=== PATIENT | female | born 1950 | race Caucasian/White ===

== ENCOUNTER 2022-09-23 23:15 | Emergency (ER) | payer OTHER, SELFPAY ==
--- NOTE | ~2022-09-23 | XR_ITS ---
Left elbow Technique: AP, oblique, and lateral views were obtained. Clinical History: Pain Findings: No acute fracture or dislocation is seen. Osseous alignment is anatomic. Joint spaces are p reserved. There is no displacement of the fat pads, and soft tissues are unremarkable. Impression: Unremarkable radiographs. Reviewed, dictated and finalized at location . Impression: Unremarkable radiographs.
--- NOTE | 2022-09-24 02:06 | ED.UPPEXIN ---
HPI - Extremity Injury (Upper) General Chief Complaint: Extremity Injury, Upper <DIETER Langston Last Filed: 09/24/22 02:57> Stated Complaint: left elbow injury <DIETER Langston Last Filed: 09/24/22 02:57> Time Seen by Provider: 09/24/22 01:18 <DIETER Langston Last Filed: 09/24/22 02:57> Source: patient <DIETER Langston Last Filed: 09/24/22 02:57> Mode of arrival: ambulatory <DIETER Langston Filed: 09/24/22 02:57> Limitations: no limitations <DIETER Langston Filed: 09/24/22 02:57> History of Present Illness HPI narrative: Patient is a 72-year-old female who presents to the ED with report of left elbow pain. Patient reports she injured her elbow last at work and hit her left elbow on a work refrigerator handle while walking by. She states she hit the handle fairly hard. She has had pain and swelling noted to her outer left elbow since then. She reports decreased range of motion. Denies any numbness or tingling. Denies any other injuries. She has been taking her home tramadol without much relief. <DIETER Langston Last Filed: 09/24/22 02:57> Related Data Allergies/Adverse Reactions: Allergies Allergy/AdvReac Type Severity Reaction Status Date / Time No Known Allergies Allergy Verified 09/26/22 11:01 <DIETER Langston Last Filed: 09/24/22 02:57> Review of Systems Review of Systems: CONSTITUTIONAL: Denies fever, chills, or sweats. MUSCULOSKELETAL: See HPI. NEUROLOGIC: Denies tingling, numbness, or weakness. <DIETER Langston Last Filed: 09/24/22 02:57> All systems reviewed & are unremarkable except as noted in HPI and below <DIETER Langston Filed: 09/24/22 02:57> [facility] Past Medical History Medical History: Medical History (Updated 09/26/22 @ 11:54 by Mando Deras MD) Left elbow contusion <DIETER Langston Last Filed: 09/24/22 02:57> Family History Family History: Family History Mother Acute myocardial infarction Other Diabetes mellitus Family history of cardiovascular disease <Rubina Gutierrez PA-C - Last Filed: 09/24/22 02:57> Social History Social History: Social History Smoking status: Never smoker Alcohol intake: never <DIETER Langston Last Filed: 09/24/22 02:57> Exam Narrative: GENERAL: Well appearing, obese with BMI of 34, non-toxic, in no acute distress. HEAD: Normocephalic, atraumatic. NECK: Supple. No adenopathy, no masses. RESPIRATORY: Airway patent, respirations nonlabored. Clear to auscultation bilaterally, no rales, rhonchi, wheezing. CARDIOVASCULAR: Regular rate and rhythm without murmurs, rubs, or gallops. Radial pulses 2+ and equal bilaterally. MUSCULOSKELETAL: No gross deformity. Decreased flexion, extension, supination/pronation range of motion of left elbow due to pain. Tenderness to palpation to lateral epicondyle of left elbow, directly over area of radial head, area of swelling and redness noted. No warmth. Sensation intact. SKIN: Warm, dry, normal color. No rashes. NEURO: A&O X3. Speech clear. Cranial nerves II-XII grossly intact. Steady gait. No ataxic movements. PSYCHIATRIC: Appropriate mood and affect. Normal interaction. 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 I performed all aspects of the MDM as documented w/ the following additions: 72-year-old presenting with an arm injury after fall. Findings consistent with radial head fracture. Placed in sling given Orthopedic follow-up.All questions answered. Patient in agreement w/ disposition. <Justo Morales MD - Last Filed:
[2022-09-24] MEDS: HYDROcodone/acetaminophen (*CRX) 5-325 MG TABLET 1 TAB PO (02:36)
[2022-09-24] MEDS: NAPROXEN 250 MG TABLET PO (02:36)
== END 2022-09-24 02:41 | disposition home or self-care (01) ==
PROVIDERS: Emergency Provider Physician Assistant; PCP Internal Medicine
DX: S52.125A Nondisplaced fracture of head of left radius, initial encounter for closed fracture (principal); W22.09XA Striking against other stationary object, initial encounter
CPT/HCPCS: 73080; 99284; A9270